=== PATIENT | female | born 1950 | race Caucasian/White ===

== ENCOUNTER 2019-01-24 14:52 | Emergency (ER) | payer OTHER ==
[2019-01-24 15:24] LABS: Absolute Lymphocytes (CBC) 2.5 K/uL (0.7-4.9); Absolute Monocytes 0.4 K/uL (0.1-1.3); Absolute Neutrophil 3.9 K/uL (1.8-8.0); Hematocrit 42.2 % (36.0-45.0); Lymphocytes % 35.9 % (15.3-44.8); MPV 8.9 fL (7.6-11.3); Monocytes % 5.7 % (3.3-12.3)
[2019-01-24 15:27] LABS: Protime INR 0.96
--- NOTE | 2019-01-24 15:45 | EKG ---
Test Date: 2019-01-24 Test Time: 15:04:01 Insurance Operations Rep: DARRELL MEASUREMENT RESULTS: Intervals: Rate: 80 VA: 164 QRSD: 90 QT: 380 QTc: 438 [place]: P: 67 VA: 164 QRS: 17 T: 29 INTERPRETIVE STATEMENTS: Normal sinus rhythm Normal ECG Compared to ECG 06/20/2012 12:38:59 Sinus arrhythmia no longer present Electronically Signed On 01-24-19 15:44:28 INDUSTRIAL BOILERMAKER by Chinmay Bailon
[2019-01-24 15:50] LABS: ALT/SGPT 33 U/L (12-78); AST/SGOT 18 U/L (15-37); Albumin 3.5 g/dL (3.4-5.0); Alkaline Phosphatase 117 U/L (45-117); BUN Blood Urea Nitrogen 18 mg/dL (7-18); Bicarbonate 30 mmol/L (21-32); Bilirubin Direct < 0.1 mg/dL (0-0.2); Bilirubin Total 0.2 mg/dL (0.2-1.0); Glucose Level 108 mg/dL (74-106); NT PRO-BNP 29 pg/mL (<125); Potassium 4.2 mmol/L (3.5-5.1); Protein, Total 7.1 g/dL (6.4-8.2); Sodium Level 142 mmol/L (136-145); Troponin (Emerg Dept Use Only) < 0.02 ng/mL (0.0-0.045)
--- NOTE | 2019-01-24 16:25 | RAD REPORT ---
EXAM DESCRIPTION: Eugenia Single View01/24/2019 4:16 pm CLINICAL HISTORY: Chest pain COMPARISON: none FINDINGS: The lungs appear clear of acute infiltrate. The heart is normal size IMPRESSION: No acute abnormalities displayed
[2019-01-24] MEDS ORDERED: ASPIRIN 81 MG CHEWABLE TABLET ONE (16:26)
[2019-01-24 16:56] LABS: Urine Blood NEGATIVE (NEG); Urine Glucose NEGATIVE (NEG); Urine Protein NEGATIVE (NEG); Urine Specific Gravity 1.015 (1.005-1.030)
--- NOTE | 2019-01-24 19:17 | ER ---
Nurse's Notes [facility] Name: Sherrie Bain Age: 68 yrs Sex: Female : 1950 Arrival Date: 01/24/2019 Time: 14:55 Bed 24 Private MD: Diagnosis: Chest pain, unspecified Presentation: 01/24 14:57 Presenting complaint: Left lateral chest pain x 2 days. Pain is described as a hb squeezing sensation. Denies SOB/nausea. Transition of care: patient was not received from another setting of care. Onset of symptoms was January 23, 2019. Risk Assessment: Do you want to hurt yourself or someone else? Patient reports no desire to harm self or others. Care prior to arrival: None. 14:57 Method Of Arrival: Ambulatory hb 14:57 Acuity: MARCIN 3 hb 15:25 Initial Sepsis Screen: Does the patient meet any 2 criteria? No. Patient's initial rv sepsis screen is negative. Does the patient have a suspected source of infection? No. Patient's initial sepsis screen is negative. Historical: - Allergies: 14:59 Niacin; hb - Immunization history:: Adult Immunizations up to date. - Social history:: Smoking status: Patient uses tobacco products, smokes one-half pack cigarettes per day. - Ebola Screening: : No symptoms or risks identified at this time. Screenin:25 Abuse screen: Denies threats or abuse. Denies injuries from another. Nutritional rv screening: No deficits noted. Tuberculosis screening: No symptoms or risk factors identified. Fall Risk None identified. Assessment: 15:23 General: Appears in no apparent distress. uncomfortable, Behavior is calm, cooperative. rv Pain: Complains of pain in chest, left side Pain does not radiate. Pain began 2-3 days ago. Neuro: Neuro: Level of Consciousness is awake, alert, obeys commands, Oriented to person, place, time, situation. Cardiovascular: Capillary refill < 3 seconds Rhythm is regular. Respiratory: Airway is patent. GI: No signs and/or symptoms were reported involving the gastrointestinal system. : No signs and/or symptoms were reported regarding the genitourinary system. EENT: No signs and/or symptoms were reported regarding the EENT system. Derm: Skin is intact. Musculoskeletal: No signs and/or symptoms reported regarding the musculoskeletal system. 16:17 Reassessment: Patient appears in no apparent distress at this time. Patient and/or rv family updated on plan of care and expected duration. Pain level reassessed. Patient is alert, oriented x 3, equal unlabored respirations, skin warm/dry/pink. 18:17 Reassessment: Patient appears in no apparent distress at this time. No changes from rv previously documented assessment. Patient and/or family updated on plan of care and expected duration. Pain level reassessed. repeat tropin done, awaiting result. Vital Signs: 14:58 BP 152 / 102; Pulse 88; Resp 16; Temp 98.2; Pulse Ox 100% on R/A; Pain 6/10; hb 15:30 BP 126 / 67; Pulse 76; Resp 14 S; Pulse Ox 97% on R/A; rv 16:00 BP 129 / 63; Pulse 82; Resp 17 S; Pulse Ox 97% on R/A; rv 16:30 BP 137 / 75; Pulse 74; Resp 15 S; Pulse Ox 99% on R/A; rv 17:05 BP 136 / 100; Pulse 80; Resp 17 S; Pulse Ox 100% on R/A; rv 17:30 BP 139 / 117; Pulse 77; Resp 11 S; Pulse Ox 99% on R/A; rv 18:00 BP 143 / 76 LA; Pulse 74; Resp 15 S; Pulse Ox 100% on R/A; rv 18:30 BP 133 / 76 LA; Pulse 82; Resp 18 S; Pulse Ox 99% on R/A; rv 19:00 BP 145 / 131 LA; Pulse 80; Resp 17; Pulse Ox 98% on R/A; rv ED Course: 14:55 Patient arrived in ED. mr 14:58 Triage completed. hb 14:58 Arm band placed on. hb 15:02 [facility]ieg[facility]C [facility] snw 15:02 Jason Castillo MD is Attending Physician. snw 15:06 EKG done, by i&c technician. reviewed by Karina ABRAMS. sm3 15:10 Inserted saline lock: 22 gauge in right antecubital area, using aseptic technique. rv Blood collected. 15:25 Patient has correct armband on for positive identification. Placed in gown. Bed in low rv position. Call light in reach. Side rails up X 1. satellite project site monitor on. Pulse ox on. NIBP on. 16:16 XRAY Chest (1 view) In Process Unspecified. EDMS 16:18 Patient maintains SpO2 saturation greater than 95% on room air. rv 18:15 Troponin (emerg Dept Use Only) Sent. rv 19:15 Chinmay Bailon MD is Referral Physician. snw 19:29 No provider procedures requiring assistance completed. IV discontinued, bleeding rv controlled, No redness/swelling at site. Pressure dressing applied. Administered Medications: 16:17 Drug: Aspirin Chewable Tablet 324 mg Route: PO; rv 16:44 Follow up: Response: No adverse reaction rv 18:00 Follow up: Response: No adverse reaction rv Outcome: 19:16 Discharge ordered by MD. snw 19:30 Discharged to home ambulatory. rv 19:30 Condition: good 19:30 Discharge instructions given to patient, Instructed on discharge instructions, follow up and referral plans. Demonstrated understanding of instructions, follow-up care. 19:30 Patient left the ED. rv Signatures: Dispatcher [employer] EDMS Karina Ziegler, MORISC FLEET MANAGER-Elena Trujillo Heather, RN RN Kayla Turner 3 Wilmer Duarte RN RN rv
--- NOTE | 2019-01-24 19:17 | EDPHYS ---
Physician Documentation [facility] Name: Sherrie Bain Age: 68 yrs Sex: Female : 1950 Arrival Date: 01/24/2019 Time: 14:55 Bed 24 Private MD: ED Physician Jason Castillo HPI: 01/24 17:18 This 68 yrs old Female presents to ER via Ambulatory with complaints of Chest snw Pain. 17:18 Onset: The symptoms/episode began/occurred gradually, 1 week(s) ago, and became snw persistent. Associated signs and symptoms: Pertinent positives: The patient does not have any pertinent positive signs or symptoms associated with pediatric illness. Modifying factors: The patient symptoms are alleviated by nothing, the patient symptoms are aggravated by movement. It is unknown whether or not the patient has had similar symptoms in the past. The patient has been recently seen by a physician: the patient's primary care provider, with similar presenting complaints, and was referred to a specialist. Historical: - Allergies: 14:59 Niacin; hb - Immunization history:: Adult Immunizations up to date. - Social history:: Smoking status: Patient uses tobacco products, smokes one-half pack cigarettes per day. - Ebola Screening: : No symptoms or risks identified at this time. ROS: 17:18 Constitutional: Negative for fever, chills, and weight loss, Eyes: Negative for injury, snw pain, redness, and discharge, ENT: Negative for injury, pain, and discharge, Neck: Negative for injury, pain, and swelling, Respiratory: Negative for shortness of breath, cough, wheezing, and pleuritic chest pain, Abdomen/GI: Negative for abdominal pain, nausea, vomiting, diarrhea, and constipation, Back: Negative for injury and pain, : Negative for injury, bleeding, discharge, and swelling, MS/Extremity: Negative for injury and deformity, Skin: Negative for injury, rash, and discoloration, Neuro: Negative for headache, weakness, numbness, tingling, and seizure. 17:18 Cardiovascular: Positive for chest pain, with movement, of the left breast. Exam: 17:18 Constitutional: This is a well developed, well nourished patient who is awake, alert, snw and in no acute distress. Head/Face: Normocephalic, atraumatic. Eyes: Pupils equal round and reactive to light, extra-ocular motions intact. Lids and lashes normal. Conjunctiva and sclera are non-icteric and not injected. Cornea within normal limits. Periorbital areas with no swelling, redness, or edema. ENT: Nares patent. No nasal discharge, no septal abnormalities noted. Tympanic membranes are normal and external auditory canals are clear. Oropharynx with no redness, swelling, or masses, exudates, or evidence of obstruction, uvula midline. Mucous membranes moist. Neck: Trachea midline, no thyromegaly or masses palpated, and no cervical lymphadenopathy. Supple, full range of motion without nuchal rigidity, or vertebral point tenderness. No Meningismus. Chest/axilla: Normal chest wall appearance and motion. Nontender with no deformity. No lesions are appreciated. Cardiovascular: Regular rate and rhythm with a normal S1 and S2. No gallops, murmurs, or rubs. Normal PMI, no JVD. No pulse deficits. Respiratory: Lungs have equal breath sounds bilaterally, clear to auscultation and percussion. No rales, rhonchi or wheezes noted. No increased work of breathing, no retractions or nasal flaring. Abdomen/GI: Soft, non-tender, with normal bowel sounds. No distension or tympany. No guarding or rebound. No evidence of tenderness throughout. Back: No spinal tenderness. No costovertebral tenderness. Full range of motion. Skin: Warm, dry with normal turgor. Normal color with no rashes, no lesions, and no evidence of cellulitis. MS/ Extremity: Pulses equal, no cyanosis. Neurovascular intact. Full, normal range of motion. Neuro: Awake and alert, GCS 15, oriented to person, place, time, and situation. Cranial nerves II-XII grossly intact. Motor strength 5/5 in all extremities. Sensory grossly intact. Cerebellar exam normal. Normal gait. Psych: Awake, alert, with orientation to person, place and time. Behavior, mood, and affect are within normal limits. Vital Signs: 14:58 BP 152 / 102; Pulse 88; Resp 16; Temp 98.2; Pulse Ox 100% on R/A; Pain 6/10; hb 15:30 BP 126 / 67; Pulse 76; Resp 14 S; Pulse Ox 97% on R/A; rv 16:00 BP 129 / 63; Pulse 82; Resp 17 S; Pulse Ox 97% on R/A; rv 16:30 BP 137 / 75; Pulse 74; Resp 15 S; Pulse Ox 99% on R/A; rv 17:05 BP 136 / 100; Pulse 80; Resp 17 S; Pulse Ox 100% on R/A; rv 17:30 BP 139 / 117; Pulse 77; Resp 11 S; Pulse Ox 99% on R/A; rv 18:00 BP 143 / 76 LA; Pulse 74; Resp 15 S; Pulse Ox 100% on R/A; rv 18:30 BP 133 / 76 LA; Pulse 82; Resp 18 S; Pulse Ox 99% on R/A; rv 19:00 BP 145 / 131 LA; Pulse 80; Resp 17; Pulse Ox 98% on R/A; rv MDM: 15:02 Patient medically screened. snw 19:17 Data reviewed: vital signs, nurses notes. Data interpreted: Pulse oximetry: on room air snw is 98 %. Interpretation: normal. Counseling: I had a detailed discussion with the patient and/or guardian regarding: the historical points, exam findings, and any diagnostic results supporting the discharge/admit diagnosis, the presence of at least one elevated blood pressure reading (>120/80) during this emergency department visit, lab results, radiology results, the need for outpatient follow up, to return to the emergency department if symptoms worsen or persist or if there are any questions or concerns that arise at home, smoking cessation. Special discussion: Based on the patient's history, exam, and Dx evaluation, there is no indication for emergent intervention or inpatient Tx. It is understood by the patient/guardian that if the Sx's persist or worsen they need to return immediately for re-evaluation. ED course: Pt continues to have pain reproducible upon movement. 01/24 15:03 Order name: Basic Metabolic Panel; Complete Time: 16:01/24 15:03 Order name: CBC with Diff; Complete Time: :01/24 15:03 Order name: LFT's; Complete Time: 16:01/24 15:03 Order name: Magnesium; Complete Time: 16:01/24 15:03 Order name: NT PRO-BNP; Complete Time: 16:01/24 15:03 Order name: PT-INR; Complete Time: 16: snw 01/24 15:00 Order name: EKG; Complete Time: 15:00 hb 01/24 15:00 Order name: EKG - Nurse/Tech; Complete Time: 15:20 hb 01/24 15:03 Order name: Troponin (emerg Dept Use Only); Complete Time: 16:01 snw 01/24 15:03 Order name: XRAY Chest (1 view); Complete Time: 16:34 snw 01/24 16:06 Order name: Urine Dipstick--Ancillary (enter results); Complete Time: 16:59 em1 01/24 18:04 Order name: Troponin (emerg Dept Use Only); Complete Time: 18:47 snw 01/24 15:03 Order name: Cardiac monitoring; Complete Time: 15:19 snw 01/24 15:03 Order name: IV Saline Lock; Complete Time: 15:19 snw 01/24 15:03 Order name: Labs collected and sent; Complete Time: 15:19 snw 01/24 15:03 Order name: O2 Per Protocol; Complete Time: 15:19 snw 01/24 15:03 Order name: O2 Sat Monitoring; Complete Time: 15:19 snw 01/24 19:15 Order name: Recheck B/P; Complete Time: 19:17 snw Administered Medications: 16:17 Drug: Aspirin Chewable Tablet 324 mg Route: PO; rv 16:44 Follow up: Response: No adverse reaction rv 18:00 Follow up: Response: No adverse reaction rv Disposition: 01/25 06:32 Co-signature as Attending Physician, Jason Castillo MD I agree with the assessment and kdr plan of care. Disposition: 01/24/19 19:16 Discharged to Home. Impression: Chest pain, unspecified. - Condition is Stable. - Discharge Instructions: Nonspecific Chest Pain, Chest Wall Pain, Hypertension, Aspirin and Your Heart. - Medication Reconciliation Form, Thank You Letter, Antibiotic Education, Prescription Opioid Use, Work release form form. - Follow up: Private Physician; When: 1 - 2 days; Reason: Recheck today's complaints, Continuance of care, Re-evaluation by your physician. Follow up: Emergency Department; When: As needed; Reason: Worsening of condition. Follow up: Chinmay Bailon MD; When: 1 week; Reason: Recheck today's complaints, Continuance of care. - Notes: Please take 81mg aspirin daily. Signatures: Dispatcher [employer] EDMS Jason Castillo MD MD kdr Therrien, Shelly, MARIO-C BUYER PLANNER-Joew Alia Nesbitt, RN RN Wilmer Duatre, RN RN rv Corrections: (The following items were deleted from the chart) 01/24 19:30 19:16 01/24/2019 19:16 Discharged to Home. Impression: Chest pain, unspecified. rv Condition is Stable. Forms are Work release form, Medication Reconciliation Form, Thank You Letter, Antibiotic Education, Prescription Opioid Use. Follow up: Private Physician; When: 1 - 2 days; Reason: Recheck today's complaints, Continuance of care, Re-evaluation by your physician. Follow up: Emergency Department; When: As needed; Reason: Worsening of condition. Follow up: Chinmay Bailon; When: 1 week; Reason: Recheck today's complaints, Continuance of care. snw
[2019-01-24 19:40] VITALS: TEMP 98.2
[2019-01-24 19:51] VITALS: BP 145/131; O2SAT 98
== END 2019-01-24 19:30 | disposition home or self-care (01) ==
LOC: ER 14:52
DX: R07.9 Chest pain, unspecified (principal); F17.210 Nicotine dependence, cigarettes, uncomplicated
CPT/HCPCS: 36415; 71045; 80048; 80076; 81003; 83735; 83880; 84484; 85025; 85610; 93005; 99285

== ENCOUNTER 2022-05-22 12:05 | Emergency (ER) | payer OTHER ==
[2022-05-22 13:01] LABS: Absolute Lymphocytes (CBC) 1.6 K/uL (0.7-4.9); Hematocrit 41.8 % (36.0-45.0); Lymphocytes % 27.6 % (15.3-44.8); MPV 8.2 fL (7.6-11.3); RBC Red Blood Cell Count 4.66 M/uL (3.86-4.86)
[2022-05-22 13:07] LABS: Protime INR 0.95
--- NOTE | 2022-05-22 13:21 | ER ---
Nurse's Notes [facility] Name: Sherrie Bain Age: 72 yrs Sex: Female : 1950 Arrival Date: 05/22/2022 Time: 12:07 Bed 8 Private MD: Young Garcia H Diagnosis: Epistaxis Presentation: 05/22 12:26 Chief complaint: Patient states: pt reporting that she has had l nares bleeding off and jh6 on x 5 days. no trauma and states that she hasnt had this issue before. all bleeding has stopped at this time and pt is not having any pain. Coronavirus screen: Vaccine status: Patient reports receiving the 2nd dose of the covid vaccine. At this time, the client does not indicate any symptoms associated with coronavirus-19. Ebola Screen: Patient negative for fever greater than or equal to 101.5 degrees Fahrenheit, and additional compatible Ebola Virus Disease symptoms Patient denies exposure to infectious person. Patient denies travel to an Ebola-affected area in the 21 days before illness onset. Initial Sepsis Screen: Does the patient meet any 2 criteria? No. Patient's initial sepsis screen is negative. Does the patient have a suspected source of infection? No. Patient's initial sepsis screen is negative. Risk Assessment: Do you want to hurt yourself or someone else? Patient reports no desire to harm self or others. Onset of symptoms was May 19, 2022. 12:26 Method Of Arrival: Ambulatory [facility] 12:26 Acuity: MARCIN 3 6 Triage Assessment: 12:29 General: Appears see triage note. . General: pt stated that this episode started jh6 suddenly and lasted aprox 5-10 min. . Pain: Denies pain. 12:30 General: Behavior is calm, cooperative. 6 Historical: - Allergies: 13:41 Niacin; jl7 - Home Meds: 12:28 Synthroid Oral [Active]; 6 - PMHx: 13:41 Hypothyroidism; jl7 - Immunization history:: Adult Immunizations up to date. - Social history:: Smoking status: Patient reports the use of cigarette tobacco products, smokes one pack cigarettes per day. - Family history:: not pertinent. Screenin:29 Abuse screen: Denies threats or abuse. Nutritional screening: No deficits noted. jh6 Tuberculosis screening: No symptoms or risk factors identified. Fall Risk None identified. Assessment: 12:48 General: see triage note. [facility] Vital Signs: 12:26 BP 177 / 91; Pulse 80; Resp 17; Temp 97.6(O); Pulse Ox 99% on R/A; Weight 77.11 kg; 6 Height 5 ft. 6 in. (167.64 cm); Pain 0/10; 13:30 BP 146 / 78; Pulse 77; Resp 16; Pulse Ox 100% ; Pain 0/10; 6 12:26 Body Mass Index 27.44 (77.11 kg, 167.64 cm) [facility] ED Course: 12:07 Patient arrived in ED. am2 12:07 Young Garcia DO is Private Physician. am2 12:15 Kareem Medellin NP is PHCP. pm1 12:15 Chloé Higgins MD is Attending Physician. pm1 12:21 Alesha Clark RN is Primary Nurse. [facility] 12:[address] [facility] 12:29 Arm band placed on right wrist. 6 12:29 Placed in gown. Bed in low position. Call light in reach. Side rails up X 1. Adult w/ [facility] patient. 12:30 No provider procedures requiring assistance completed. [facility] 12:59 Inserted saline lock: 20 gauge in right antecubital area, using aseptic technique. Blood collected. 12:59 Basic Metabolic Panel Sent. 12:59 CBC with Diff Sent. 12:59 PT-INR Sent. 13:21 Jennifer Reed MD is Referral Physician. [facility] 13:40 IV discontinued, intact, bleeding controlled, No redness/swelling at site. Pressure [facility] dressing applied. Administered Medications: No medications were administered Medication: 13:41 VIS not applicable for this client. jl7 Outcome: 13:21 Discharge ordered by . md2 13:40 Discharged to home ambulatory. [facility] 13:40 Condition: good 13:40 Discharge instructions given to patient, Instructed on discharge instructions, follow up and referral plans. Demonstrated understanding of instructions, follow-up care, medications, Prescriptions given X 1. 13:[address] [facility] Signatures: Kareem Medellin NP RENEWABLE ENERGY ENGINEER pm1 Arben Morris RN RN jl7 Tressa Sage Mohammad, MD MD ma2 Alesha Clark RN RN vg1 Marina Hanson RN RN jh6 Lorin Gregory
--- NOTE | 2022-05-22 13:22 | EDPHYS ---
Physician Documentation [facility] Name: Sherrie Bain Age: 72 yrs Sex: Female : 1950 Arrival Date: 05/22/2022 Time: 12:07 Bed 8 Private MD: Young Garcia H ED Physician Chloé Higgins HPI: 05/22 12:41 This 72 yrs old Female presents to ER via Ambulatory with complaints of Nose Bleed. ma2 12:43 Associated signs and symptoms: Pertinent negatives: blurred vision, ear ache, ma2 lightheadedness, rhinorrhea, shortness of breath. 72-year-old female presents with epistaxis 3 days on and off intermittent. No bleeding at this time, does not take blood thinners, no nasal pain or any other nasal symptoms.. Historical: - Allergies: 13:41 Niacin; jl7 - Home Meds: 12:28 Synthroid Oral [Active]; 6 - PMHx: 13:41 Hypothyroidism; jl7 - Immunization history:: Adult Immunizations up to date. - Social history:: Smoking status: Patient reports the use of cigarette tobacco products, smokes one pack cigarettes per day. - Family history:: not pertinent. ROS: 12:43 Constitutional: Negative for fever, chills, and weight loss. ma2 12:43 All other systems are negative. Exam: 12:43 Constitutional: This is a well developed, well nourished patient who is awake, alert, ma2 and in no acute distress. Head/Face: Normocephalic, atraumatic. Eyes: Pupils equal round and reactive to light, extra-ocular motions intact. Lids and lashes normal. Conjunctiva and sclera are non-icteric and not injected. Cornea within normal limits. Periorbital areas with no swelling, redness, or edema. ENT: Positive blood on left nostril, otherwise no active bleeding, no blood in the mouth, otherwise nares patent. No nasal discharge, no septal abnormalities noted. Tympanic membranes are normal and external auditory canals are clear. Oropharynx with no redness, swelling, or masses, exudates, or evidence of obstruction, uvula midline. Mucous membranes moist. Neck: Trachea midline, no thyromegaly or masses palpated, and no cervical lymphadenopathy. Supple, full range of motion without nuchal rigidity, or vertebral point tenderness. No Meningismus. Chest/axilla: Normal chest wall appearance and motion. Nontender with no deformity. No lesions are appreciated. Cardiovascular: Regular rate and rhythm with a normal S1 and S2. No gallops, murmurs, or rubs. Normal PMI, no JVD. No pulse deficits. Respiratory: Lungs have equal breath sounds bilaterally, clear to auscultation and percussion. No rales, rhonchi or wheezes noted. No increased work of breathing, no retractions or nasal flaring. Abdomen/GI: Soft, non-tender, with normal bowel sounds. No distension or tympany. No guarding or rebound. No evidence of tenderness throughout. Skin: Warm, dry with normal turgor. Normal color with no rashes, no lesions, and no evidence of cellulitis. MS/ Extremity: Pulses equal, no cyanosis. Neurovascular intact. Full, normal range of motion. Neuro: Awake and alert, GCS 15, oriented to person, place, time, and situation. Cranial nerves II-XII grossly intact. Motor strength 5/5 in all extremities. Sensory grossly intact. Cerebellar exam normal. Normal gait. Vital Signs: 12:26 BP 177 / 91; Pulse 80; Resp 17; Temp 97.6(O); Pulse Ox 99% on R/A; Weight 77.11 kg; [facility] Height 5 ft. 6 in. (167.64 cm); Pain 0/10; 13:30 BP 146 / 78; Pulse 77; Resp 16; Pulse Ox 100% ; Pain 0/10; [facility] 12:26 Body Mass Index 27.44 (77.11 kg, 167.64 cm) [facility] MDM: 12:22 Patient medically screened. pm1 12:43 Differential diagnosis: sinusitis, epistaxis r/t trauma, spontaneous epistaxis. Data ma2 reviewed: vital signs, nurses notes. Counseling: I had a detailed discussion with the patient and/or guardian regarding: the historical points, exam findings, and any diagnostic results supporting the discharge/admit diagnosis, the presence of at least one elevated blood pressure reading (>120/80) during this emergency department visit, the need for outpatient follow up. Response to treatment: the patient's symptoms have markedly improved after treatment. 05/22 12:41 Order name: Basic Metabolic Panel; Complete Time: 13:21 ma2 05/22 12:41 Order name: CBC with Diff; Complete Time: 13:21 ma2 05/22 12:41 Order name: PT-INR; Complete Time: 13:21 ma2 Administered Medications: No medications were administered Disposition Summary: 05/22/22 13:21 Discharge Ordered Location: Home ma2 Condition: Stable ma2 Diagnosis - Epistaxis ma2 Followup: ma2 - With: - When: Tomorrow - Reason: If symptoms return, Continuance of care Discharge Instructions: - Discharge Summary Sheet ma2 - Nosebleed, Adult, [id number] ma2 Forms: - Medication Reconciliation Form ma2 - Thank You Letter ma2 - Antibiotic Education ma2 - Prescription Opioid Use ma2 Prescriptions: - Afrin nasal spray - spray 1 spray by INTRANASAL route 3 times per day; 30 spray; Refills: 0, ma2 Product Selection Permitted Signatures: Dispatcher [employer] Kareem Fuentes NP INTEGRATION SOFTWARE DEVELOPER pm1 Arben Morris RN RN jl7 Chloé Higgins MD MD ma2 Marina Hanson RN RN jh6
[2022-05-22 13:56] VITALS: TEMP 97.6
[2022-05-22 13:58] VITALS: BP 146/78; O2SAT 100
== END 2022-05-22 13:41 | disposition home or self-care (01) ==
LOC: ER 12:05
DX: R04.0 Epistaxis (principal); E03.9 Hypothyroidism, unspecified; F17.210 Nicotine dependence, cigarettes, uncomplicated
CPT/HCPCS: 36415; 80048; 85025; 85610; 99283